=== PATIENT | female | born 1955 | race Caucasian/White ===

== ENCOUNTER 2018-11-15 18:14 | Emergency (ER) | payer OTHER ==
[2018-11-15 18:55] VITALS: BP 180/93; PULSE 61
--- NOTE | 2018-11-15 21:09 | EDM.PDOC ---
ED HPI GENERAL MEDICAL PROBLEM - General Chief Complaint: ENT Problem Stated Complaint: FACIAL SWELLING Time Seen by Provider: 11/15/18 19:03 Source of Information: Reports: Patient, Family () History Limitations: Reports: No Limitations - History of Present Illness INITIAL COMMENTS - FREE TEXT/NARRATIVE: Mrs. Sidhu is a very pleasant 63-year-old woman with no significant past medical history, who states that she underwent a lower left root canal (tooth # 21) on 11/02/2018. She states that the dentist noticed a little pus when he performed the root canal, therefore he left the tooth open, without a crown. He prescribed clindamycin every 6 hours, that the patient took for 7 days. Despite taking the antibiotic, however, the patient states that she developed swelling to her left anterior mandible. She states that she return to the dentist on 11/06/2018, where crown was placed, and her clindamycin was continued. Despite this, however, her swelling increased. She states that she has not had a fever, but has had nausea without emesis. The swollen area throbs with pain. She has not noticed any oral drainage. She tried to reach the dentist, but was unable to get into see him until this morning. When he saw her, he took 2 x-rays , and determined that the patient that the swelling is due to an infection. He prescribed amoxicillin 500 mg po Q6 hrs x 10 days and metronidazole 500 mg po Q8 hrs x 7 days along with T3 1-2 tabs po Q6 hrs #15. The patient states that her daughter is an OPERATIONS SUPPORT REPRESENTATIVE, and when the patient discussed her symptoms with her, her daughter recommended that she come to the ED to get a CT scan, out of concern that the infection might spread to the patient's brain. Here in the ED, the patient is somewhat hypertensive, but afebrile. She does not appear to be in any distress. The patient's PCP is ONDINA Russell. Her Promotions Assistant is Dr. Kandy Wilson, in [place]. Her Dentist is Dr. Ismael Call DDS. Left Jaw Pain Score (Numeric/FACES): 3 - Related Data Allergies Allergy/AdvReac Type Severity Reaction Status Date / Time No Known Allergies Allergy Verified 11/15/18 18:55 Home Meds: Home Meds Levothyroxine [Synthroid] 100 mcg PO DAILY 01/21/16 [History] Acetaminophen with Codeine [Tylenol with Codeine #3 Tablet] 1 tab PO Q6HR [History] Amoxicillin 500 mg PO Q6HR 11/15/18 [History] Ondansetron [Zofran ODT] 1 tab PO Q8H PRN #10 tab.dis 11/15/18 [Rx] metroNIDAZOLE [Flagyl] 250 mg PO TID 11/15/18 [History] Past Medical History Endocrine/Metabolic History: Reports: Hypothyroidism - Past Surgical History HEENT Surgical History: Reports: Oral Surgery (wisdom teeth extractions) GI Surgical History: Reports: Bariatric Procedure (sleeve gastrectomy, 2015) Female Surgical History: Reports: Breast Biopsy (left, benign) Social & Family History - Tobacco Use Smoking Status *Q: Never Smoker Second Hand Smoke Exposure: No - Caffeine Use Caffeine Use: Reports: None - Alcohol Use Alcohol Use History: Yes Alcohol Use Frequency: Socially - Recreational Drug Use Recreational Drug Use: No - Living Situation & Occupation Living situation: Reports: , with Spouse Occupation: Employed (fiscal agent) ED ROS ENT - Review of Systems Review Of Systems: ROS reveals no pertinent complaints other than HPI. ED EXAM, ENT - Physical Exam Exam: See Below Exam Limited By: No Limitations General Appearance: Alert, WD/WN, No Apparent Distress Eye Exam: Bilateral Eye: EOMI, Normal Inspection Ears: Normal External Exam, Normal Canal, Hearing Grossly Normal, Normal TMs Nose: Normal Inspection, Normal Mucousa, No Blood Mouth/Throat: Normal Lips, Normal Oropharynx, Other (Tooth #1 absent. Teeth #2, 3 with fillings. Teeth #4, 5 crowned. Tooth #11 with filling. Teeth #12, 13, 14 , 15 crowned. Tooth #16 absent. Tooth #17 absent. Teeth #18, 19 with fillings. Tooth #20, 21 (the tooth of concern) crowned. There is slight gingival swelling associated with these teeth, without pointing. Teeth #28, 29, 30, 31 crowned. Tooth #32 absent.) Head: Atraumatic, Facial Swelling (Indurated, to the left anterior inferior mandible, with no associated lymphadenopathy) Neck: Normal Inspection, Supple, Non-Tender, Full Range of Motion. No: Lymphadenopathy (L), Lymphadenopathy (R) Course - Vital Signs Last Recorded V/S: Last Vital Signs Temp 37.3 C 11/15/18 18:54 Pulse 61 11/15/18 18:54 Resp 14 11/15/18 18:54 BP 180/93 H 11/15/18 18:54 Pulse Ox 95 11/15/18 18:54 - Re-Assessments/Exams Free Text/Narrative Re-Assessment/Exam: 11/15/18 21:03 The patient appears to have an infection to her left anterior mandible, but I do not feel any fluctuance on palpation, and while there is slight gingival swelling around teeth #20 and 21, I see no pointing. I suspect that the patient has an infection, but not a drainable abscess. We discussed the option of obtaining a CT scan with IV contrast, but the patient declined. For today's purposes, the patient will continue on the amoxicillin and Flagyl as prescribed. I will have her start taking [id number] ibuprofen around the clock, to try to minimize the amount of the T3 that she would need to take. I will also prescribe some Zofran to treat any nausea that might arise. The patient will then follow-up with her dentist in 1 week. Departure - Departure Time of Disposition: 21:04 Disposition: Home, Self-Care 01 Condition: Good Clinical Impression: Dental infection - Discharge Information *PRESCRIPTION DRUG MONITORING PROGRAM REVIEWED*: Not Applicable *COPY OF PRESCRIPTION DRUG MONITORING REPORT IN PATIENT JONG: Not Applicable Prescriptions: Ondansetron [Zofran ODT] 1 tab PO Q8H PRN #10 tab.dis PRN Reason: Nausea/Vomiting Instructions: Dental Abscess, [id number] Referrals: Sally Martell PA-C [Primary Care Provider] - Kandy Wilson MD [Ordering Only Provider] - Ismael Call DDS [Consulting Physician] - Forms: ED Department Discharge Additional Instructions: You were seen in the emergency room for left jaw swelling and pain. On examination, you appear to have an infection in that area, but unlikely an abscess. A CT scan of the area with IV contrast was offered, but declined. We recommend that you continue the amoxicillin and Flagyl that was prescribed to you this morning. We recommend that you start taking [id number] ibuprofen, 3 tablets (600 mg ) every 8 hours, [id number]. Take 1-2 tablets of the Tylenol with codeine up to every 6 hours, as needed for pain not relieved by ibuprofen. A prescription for the anti-nausea medicine Zofran has been sent to the [facility], located in the [facility]. Dissolve one tablet of Zofran on your tongue up to every 8 hours, as needed for nausea/vomiting. Follow-up with your dentist in 1 week. If any other problems, please do not hesitate to return to the ER.
== END 2018-11-15 21:17 | disposition home or self-care (01) ==
LOC: JD.ED 18:14
DX: K04.7 Periapical abscess without sinus (principal); E03.9 Hypothyroidism, unspecified; Z79.899 Other long term (current) drug therapy
CPT/HCPCS: 99283